=== PATIENT | female | born 1975 ===

== ENCOUNTER 2019-09-16 06:27 | Emergency (ER) | payer OTHER, BC ==
[2019-09-16] MEDS ORDERED: Ketorolac 30 MG/ML SDV IVPUSH ONE (06:49)
[2019-09-16] MEDS ORDERED: Sodium Chloride 0.9% 500 ML IV SCH ×2 (07:00→07:49)
[2019-09-16 07:37] LABS: CHLORIDE,CL 102 mEq/L (98-106); SODIUM,NA 138 mEq/L (136-145)
--- NOTE | 2019-09-16 07:44 | EDM.PDOC ---
ED HPI GENERAL MEDICAL PROBLEM - General Chief Complaint: Flank Pain Stated Complaint: L) flank pain Time Seen by Provider: 09/16/19 07:20 Source of Information: Reports: Patient History Limitations: Reports: No Limitations - History of Present Illness INITIAL COMMENTS - FREE TEXT/NARRATIVE: Lyric is a 44 year old female who presents to the ED with c/o left flank pain. She reports she woke around 5 am with the pain. Reports feeling well prior to going to sleep last night. Describes the pain as sharp. Rates pain 8/10. Reports she felt slightly nauseated. Denies any other symptoms. Denies urinary frequency, urgency, dysuria, vomiting, diarrhea, fever, chills, cough, CP, SOB, constipation, diarrhea. Denies any history of kidney stones. Does have chronic back pain, but reports this is much worse. Onset: Today, Sudden Onset Date: 09/16/19 Onset Time: 05:00 Duration: Constant Location: Reports: Back (left flank), Pelvis, Radiates to Quality: Reports: Sharp Severity: Severe Associated Symptoms: Reports: Nausea/Vomiting (nausea, no vomiting). 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 Left Flank Pain Score (Numeric/FACES): 8 - Related Data Allergies Allergy/AdvReac Type Severity Reaction Status Date / Time sulfamethoxazole Allergy Rash Verified 09/16/19 06:32 [From Bactrim] trimethoprim [From Bactrim] Allergy Rash Verified 09/16/19 06:32 Home Meds: Home Meds Ketorolac [Toradol] 10 mg PO Q6H PRN #20 tab 09/16/19 [Rx] Losartan [Cozaar] 50 mg PO DAILY 09/16/19 [History] Multivitamin [Multi-Vitamin Daily] 1 each PO DAILY 09/16/19 [History] Tamsulosin HCl [Flomax] 0.4 mg PO DAILY 14 Days #14 cap.er.24h 09/16/19 [Rx] Past Medical History Cardiovascular History: Reports: Hypertension Gastrointestinal History: Reports: None - Past Surgical History Cardiovascular Surgical History: Reports: None GI Surgical History: Reports: Cholecystectomy Social & Family History - Family History Family Medical History: Noncontributory - Tobacco Use Smoking Status *Q: Former Smoker Years of Tobacco use: 20 Packs/Tins Daily: 0.5 Used Tobacco, but Quit: No - Caffeine Use Caffeine Use: Reports: None - Recreational Drug Use Recreational Drug Use: No ED ROS GENERAL - Review of Systems Review Of Systems: Comprehensive ROS is negative, except as noted in HPI. ED EXAM, RENAL/ - Physical Exam Exam: See Below Exam Limited By: No Limitations General Appearance: Alert, WD/WN, No Apparent Distress (after administration of Toradol) Throat/Mouth: Normal Inspection, Normal Lips, Normal Teeth, Normal Gums, Normal Oropharynx, Normal Voice, No Airway Compromise Head: Atraumatic, Normocephalic Neck: Normal Inspection, Supple, Non-Tender, Full Range of Motion Respiratory/Chest: No Respiratory Distress, Lungs Clear, Normal Breath Sounds, No Accessory Muscle Use, Chest Non-Tender Cardiovascular: Normal Peripheral Pulses, Regular Rate, Rhythm, No Edema, No Gallop, No JVD, No Murmur, No Rub GI/Abdominal: Normal Bowel Sounds, Soft, Non-Tender, No Organomegaly, No Distention, No Abnormal Bruit, No Mass Back Exam: Normal Inspection, Full Range of Motion. No: CVA Tenderness (L), CVA Tenderness (R) Extremities: Normal Inspection, Normal Range of Motion, Non-Tender, Normal Capillary Refill, No Pedal Edema Neurological: Alert, Oriented, CN II-XII Intact, Normal Cognition, Normal Gait, Normal Reflexes, No Motor/Sensory Deficits Psychiatric: Normal Affect, Normal Mood Skin Exam: Warm, Dry, Intact, Normal Color, No Rash Course - Vital Signs Last Recorded V/S: Last Vital Signs Temp 98.0 F 09/16/19 06:29 Pulse 81 09/16/19 06:29 Resp 16 09/16/19 06:29 BP 135/76 09/16/19 06:29 Pulse Ox 96 09/16/19 06:29 - Orders/Labs/Meds Orders: Active Orders 24 hr Category Date Time Status Abdomen Pelvis wo Cont [CT] Stat Exams 09/16/19 07:53 Taken ACETAMINOPHEN [REF] Stat Lab 09/16/19 09:40 Received Labs: Laboratory Tests 09/16/19 09/16/19 09/16/19 Range/Units 06:47 06:47 06:48 WBC 10.1 H (5.0-10.0) 10^3/uL RBC 4.29 (4.00-5.50) 10^6/uL Hgb 13.3 (12.0-16.0) g/dL Hct 40.2 (37.0-47.0) % MCV 93.7 (82.0-94.0) fL MCH 31.0 (27.0-32.0) pg MCHC 33.1 (33.0-38.0) g/dL RDW Coeff of Aguilar 12.4 (11.0-15.0) % Plt Count 257 (150-400) 10^3/uL Neut % (Auto) 80.1 (35-85) % Lymph % (Auto) 12.1 (10-55) % [place] % (Auto) 6.3 (0-16) % Eos % (Auto) 1.3 (0-5) % Baso % (Auto) 0.2 (0-3) % Neut # (Auto) 8.06 H (1.80-7.00) 10^3/uL Lymph # (Auto) 1.22 (1.00-4.80) 10^3/uL [place] # (Auto) 0.63 (0.00-0.80) 10^3/uL Eos # (Auto) 0.13 (0.00-0.45) 10^3/uL Baso # (Auto) 0.02 10^3/uL Sodium 138 (136-145) mEq/L Potassium 3.8 (3.5-5.0) mEq/L Chloride 102 (98-106) mEq/L Carbon Dioxide 27 (21-32) mmol/L BUN 15 (7-18) mg/dL Creatinine 1.1 H (0.6-1.0) mg/dL Est Cr Clr Drug Dosing 63.47 mL/min Estimated GFR (MDRD) 54 L (>=60) mL/min Glucose 117 H (75-99) mg/dL Calcium 9.1 (8.4-10.1) mg/dL Total Bilirubin 0.3 (0.0-1.0) mg/dL AST 15 (15-37) U/L ALT 40 (12-78) U/L Alkaline Phosphatase 50 (46-116) U/L C-Reactive Protein < 0.2 L (0.2-0.8) mg/dL Total Protein 7.1 (6.4-8.2) g/dL Albumin 3.8 (3.4-5.0) g/dL Amylase 36 (25-115) U/L Lipase 162 (73-393) U/L Urine Color Mervat (YELLOW) Urine Appearance Cloudy (CLEAR) Urine pH 5.0 (4.5-8.0) Ur Specific Chappell >= 1.030 H (1.003-1.020) Urine Protein 100 H (NEGATIVE) mg/dL Urine Glucose (UA) Negative (NEGATIVE) mg/dL Urine Ketones Negative (NEGATIVE) mg/dL Urine Occult Blood Large H (NEGATIVE) Urine Nitrite Negative (NEGATIVE) Urine Bilirubin Negative (NEGATIVE) Urine Urobilinogen 0.2 (0.2-1.0) EU/dL Ur Leukocyte Esterase Negative (NEGATIVE) Urine RBC 75-100 H (0-5) /HPF Urine WBC 5-10 H (0-5) /HPF Ur Squamous Epith Cells Few H (NOT SEEN) /HPF Calcium Oxalate Crystal Few H (NOT SEEN) /HPF Urine Bacteria Few H (NOT SEEN) /HPF Meds: Medications Discontinued Medications Generic Name Dose Route Start Last Admin Trade Name Freq PRN Reason Stop Dose Admin Acetaminophen 1,000 mg 09/16/19 09:30 09/16/19 09:33 Tylenol Extra Strength PO 09/16/19 09:31 1,000 mg NOW STA Administration Acetaminophen Confirm 09/16/19 09:18 Tylenol Extra Strength Administered 09/16/19 09:19 Dose 1,000 mg .ROUTE .STK-MED ONE Sodium Chloride 500 mls @ 999 mls/hr 09/16/19 07:00 09/16/19 07:13 Normal Saline IV 999 mls/hr .BOLUS KERLINE Administration Sodium Chloride 500 mls @ 999 mls/hr 09/16/19 07:49 09/16/19 07:55 Normal Saline IV 999 mls/hr BOLUS KERLINE Administration Sodium Chloride Confirm 09/16/19 08:00 09/16/19 08:43 Normal Saline Administered 09/16/19 08:01 Not Given Dose 500 mls @ as directed .ROUTE .STK-MED ONE Sodium Chloride 1,000 mls @ 999 mls/hr 09/16/19 08:45 09/16/19 08:47 Normal Saline IV 999 mls/hr ASDIRECTED KERLINE Administration Ketorolac Tromethamine 30 mg 09/16/19 06:49 09/16/19 07:13 Toradol IVPUSH 09/16/19 06:50 30 mg ONETIME ONE Administration - Radiology Interpretation CT Results Date: 09/16/19 CT Results Time: 08:55 Departure - Departure Time of Disposition: 09:31 Disposition: Home, Self-Care 01 Condition: Fair Clinical Impression: Ureteral stone with hydronephrosis - Discharge Information *PRESCRIPTION DRUG MONITORING PROGRAM REVIEWED*: Not Applicable *COPY OF PRESCRIPTION DRUG MONITORING REPORT IN PATIENT AASHISH: Not Applicable Prescriptions: Ketorolac [Toradol] 10 mg PO Q6H PRN #20 tab PRN Reason: Pain Tamsulosin HCl [Flomax] 0.4 mg PO DAILY 14 Days #14 cap.er.24h Instructions: Kidney Stones, [id number] Referrals: Lizzeth Holliday PA [Primary Care Provider] - Forms: ED Department Discharge Additional Instructions: - Rest and push fluids as much as possible - Toradol 1 tablet every 6 hours as needed for pain. May alternate with 1000 mg Tylenol. - Heat to area of pain as needed for comfort - Strain urine with each void until stone is collected - Flomax once daily for the next 2 weeks or until stone is collected - If stone not collected over the next week, recommend follow up for reimaging - Follow up sooner for any fever or ill feeling, as this could be sign of infection Sepsis Event Note - Evaluation Sepsis Screening Result: No Definite Risk - Focused Exam Vital Signs: Vital Signs Temp Pulse Resp BP Pulse Ox 09/16/19 06:29 98.0 F 81 16 135/76 96 Date Exam was Performed: 09/16/19 Time Exam was Performed: 11:19 - My Orders Last 24 Hours: My Active Orders 09/16/19 07:53 Abdomen Pelvis wo Cont [CT] Stat 09/16/19 09:40 ACETAMINOPHEN [REF] Stat - Assessment/Plan Last 24 Hours: My Active Orders 09/16/19 07:53 Abdomen Pelvis wo Cont [CT] Stat 09/16/19 09:40 ACETAMINOPHEN [REF] Stat Plan: Patient presented to ED with 8/10 left flank pain. Throughout ED stay, patient received total of 2 L NS and 30 mg Toradol IV. After administration of Toradol, patient's pain improved to a 1/10 and remained there throughout ED stay. CT abd/ pelvis did reveal 5.6 mm stone of left ureter at UPJ with mild-mod hydronephrosis. UA was negative for acute infection. Labs otherwise stable. Patient will be discharged home in satisfactory condition. She is advised to strain her urine for confirmation of stone passage. She is advised to return to ED or follow up immediately with PCP for any worsening pain, fever, or malaise.
[2019-09-16] MEDS ORDERED: Sodium Chloride 0.9% 500 ML ONE (08:00)
[2019-09-16] MEDS ORDERED: Sodium Chloride 0.9% 1,000 ML IV SCH (08:45)
[2019-09-16] MEDS ORDERED: Acetaminophen 500 MG Tab ONE (09:18)
[2019-09-16] MEDS ORDERED: Acetaminophen 500 MG Tab PO STA (09:30)
== END 2019-09-16 09:55 | disposition home or self-care (01) ==
LOC: CC.ED 06:27
DX: N13.2 Hydronephrosis with renal and ureteral calculous obstruction (principal); Z87.891 Personal history of nicotine dependence; Z88.2 Allergy status to sulfonamides; Z88.1 Allergy status to other antibiotic agents
CPT/HCPCS: 36415; 74176; 80053; 81001; 82150; 83690; 85025; 86140; 96361; 96374; 99284; A9270; J1885; J7030; J7040; 80307